=== PATIENT | female | born 1955 | race Caucasian/White ===

== ENCOUNTER 2017-09-22 06:31 | Day surgery (SDC) | payer MEDICAID ==
[2017-09-22] MEDS ORDERED: Bupivacaine 0.25%/EPINEPHrine 1:200,000 30 ML SDV ONE (06:40)
[2017-09-22] MEDS ORDERED: methylPREDNISolone Acetate 80 MG/ML SDV ONE (06:40)
[2017-09-22] MEDS ORDERED: Lactated Ringers 1,000 ML IV SCH (07:00)
[2017-09-22] MEDS ORDERED: Neostigmine Methylsulfate 1 MG/ML 5 ML Syringe ONE (07:13)
[2017-09-22] MEDS ORDERED: Glycopyrrolate 0.2 MG/ML 5 ML MDV ONE (07:13)
[2017-09-22] MEDS ORDERED: Ondansetron 4 MG/2 ML SDV ONE (07:13)
[2017-09-22] MEDS ORDERED: Succinylcholine 200 MG/10 ML MDV ONE (07:13)
[2017-09-22] MEDS ORDERED: Rocuronium 50 MG/5 ML Vial ONE (07:13)
[2017-09-22] MEDS ORDERED: Propofol 200 MG/20 ML SDV ONE (07:13)
[2017-09-22] MEDS ORDERED: fentaNYL 250 MCG/5 ML SDV ONE (07:13)
[2017-09-22] MEDS ORDERED: Dexamethasone 4 MG/ML SDV ONE (07:13)
[2017-09-22] MEDS ORDERED: ceFAZolin 2 GM in Sodium Chloride 0.9% 50 ML IV ONE (07:30)
[2017-09-22] MEDS ORDERED: Ketorolac 60 MG/2 ML SDV ONE (08:00)
[2017-09-22] MEDS ORDERED: Acetaminophen/HYDROcodone 325-5 MG Tab PO PRN (09:11)
--- NOTE | 2017-09-22 13:17 | OR ---
DATE OF PROCEDURE: 09/22/2017 PREOPERATIVE DIAGNOSES: 1. Medial and lateral meniscal tear, left knee. 2. Osteoarthritis, grade 3. 3. Grade 4 internal medial compartment, mostly from internal femoral condyle. 4. Osteoarthritic changes, grade 2 to grade 3, lateral plateau. POSTOPERATIVE DIAGNOSES: 1. Medial and lateral meniscal tear, left knee. 2. Osteoarthritis grade 3. 3. Grade 4 internal medial compartment, mostly from internal femoral condyle. 4. Osteoarthritic changes, grade 2 to grade 3, lateral plateau. INTERVENTIONS: Left knee shaving, posterior horn medial meniscus shaving, middle horn, anterior horn, lateral meniscus shaving, internal femoral condyle to a stable chondral base, also the lateral tibial plateau. MEDICATIONS: Injection of 8 mL of Marcaine and 80 mg of Depo-Medrol. COMPLICATIONS: None. ESTIMATED BLOOD LOSS: Minimal. INDICATIONS: Jenna is a 62-year-old and healthy. She had a lateral tibial plateau, had 2 cannulated screws. This was many years ago. I had removed the screws on January 25, 2014. She still had some discomfort in the lateral part of the knee, but also slightly medial part of the knee. 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 Since she had failed conservative treatment most recently, we decided to proceed with surgery. I discussed with the patient the possible risks, benefits, alternatives, and complications of surgery. The nature of the procedure was explained. All questions were answered. I had informed consent. DESCRIPTION OF PROCEDURE: The patient was brought to the OR. I did my markings of the left knee. She did receive antibiotics preop. The [facility] proceeded with general anesthesia. The patient was put on her back. A tourniquet was applied at the left proximal quadriceps. Sterile prep and dressing in the usual manner to the left knee. Time-out was taken to identify the correct surgical site to make sure all instrumentation were present in the room. The leg was elevated, tourniquet was raised to 250 mmHg. The knee was bent to 90- degree and an anterior lateral portal incision was done with the scalpel. A blunt probe was entered the articulation followed by irrigation and camera. Visualizing the medial and lateral gutters did not show any loose bodies. There was no significant inflammation. The patellofemoral joint was fairly well normal, maybe some grade 1 at the lateral facet, but the condyle itself on the medial side, front condyle and weightbearing surface mid posterior part of the condyle shows some crater fissuring at the cartilage, at least grade 3, some slight areas of grade 4 measuring about 2 x 2 cm, one spot up front, which was grade 2 to grade 3, and she had a medial horizontal tear at the junction of the middle posterior horn of the medial meniscus grade 1. Grade 2 arthritic changes of the medial plateau. The ECL was normal. The lateral compartment shows normal condyle. The plateau shows grade 2 to grade 3 fissuring just more fraying of the cartilage diffusely, and a tear at the mid anterior horn and medial tear of the lateral meniscus. The incision was done at the anterior medial portal after blunt probe was entered with the shaver, shaved the posterior horn of the medial meniscus, middle, anterior horn, and the lateral meniscus. Shaved to a stable condyle in the internal femoral condyle and lateral tibial plateau. Once the surgery was done, the knee was washed with saline and dried and all instrumentation removed. The skin was closed with nylon 3-0 simple sutures. An injection of 8 mL of Marcaine and 80 mg Depo-Medrol was done. Sterile dressing was applied. Tourniquet was released. Blood loss was minimal. There was no complication. The patient tolerated the operation well. She was sent to the recovery room in good condition. Andrew Pat MD /[id number]
== END 2017-09-22 10:10 | disposition home or self-care (01) ==
LOC: JP.SDS 06:31
PROVIDERS: ATTEND Orthopaedic Surgery
DX: M23.222 Derangement of posterior horn of medial meniscus due to old tear or injury, left knee (principal); M23.242 Derangement of anterior horn of lateral meniscus due to old tear or injury, left knee; M17.12 Unilateral primary osteoarthritis, left knee; I10 Essential (primary) hypertension; F41.8 Other specified anxiety disorders; Z79.82 Long term (current) use of aspirin; Z79.899 Other long term (current) drug therapy; Z87.891 Personal history of nicotine dependence
CPT/HCPCS: 29880; 36415; 85027; A9270; J0690; J1040; J1100; J1885; J2405; J2704; J2710; J3010; J7050; J7120; J0330

== ENCOUNTER 2024-01-23 09:30 | Emergency (ER) | payer MEDICARE ==
[2024-01-23] MEDS: Albuterol 0.083% 2.5 MG/3 ML Neb Soln NEB PRN (10:31)
[2024-01-23 10:39] LABS: BASOPHILS ABSOLUTE AUTO 0.05 K/uL (0.00-0.10); BASOPHILS PERCENT AUTO 0.9 % (0.1-1.3); EOSINOPHILS ABSOLUTE AUTO 0.31 K/uL (0.00-0.40); EOSINOPHILS PERCENT AUTO 5.3 % (0.0-5.4); HEMATOCRIT 38.3 % (34.3-46.0); HEMOGLOBIN 13.4 g/dL (11.2-15.5); IMMATURE GRAN PERCENT AUTO 0.2 % (0.0-0.7); LYMPHOCYTES ABSOLUTE AUTO 0.79 K/uL (0.8-3.3); LYMPHOCYTES PERCENT AUTO 13.5 % (11.4-47.7); MEAN CORPUSCULAR HEMOGLOBIN 32.4 pg (31.6-35.5); MEAN CORPUSCULAR VOLUME 92.7 fL (81.4-99.0); MONOCYTES ABSOLUTE AUTO 0.36 K/uL (0.20-0.90); MONOCYTES PERCENT AUTO 6.2 % (3.3-12.6); NEUTROPHILS ABSOLUTE AUTO 4.32 K/uL (1.0-7.6); NEUTROPHILS PERCENT AUTO 73.9 % (40.0-78.1); PLATELET COUNT,PLT 158 K/uL (130-375); RED BLOOD CELL COUNT 4.13 M/uL (3.77-5.24); WHITE BLOOD CELL COUNT,WBC 5.8 K/uL (3.2-11.0)
[2024-01-23 10:42] LABS: IMMATURE GRAN ABSOLUTE AUTO 0.01 K/uL (0.00-0.23)
[2024-01-23 10:59] LABS: LACTATE DEHYDROGENASE,LDH 195 U/L (82-234)
[2024-01-23 11:01] LABS: C-REACTIVE PROTEIN < 0.50 mg/dL (<0.50)
[2024-01-23 11:16] LABS: CORONAVIRUS COVID-19 NAA NEGATIVE (NEGATIVE); INFLUENZA A NAA NEGATIVE (NEGATIVE); INFLUENZA B NAA NEGATIVE (NEGATIVE); RESPIRATORY SYNCYTIAL VIR NAA NEGATIVE (NEGATIVE)
[2024-01-23] MEDS: Triamcinolone Acetonide 40 MG/ML 1 ML SDV IM ONE ×2 (11:22→12:30)
== END 2024-01-23 14:53 | disposition home or self-care (01) ==
LOC: JP.ED 09:30
DX: J44.1 Chronic obstructive pulmonary disease with (acute) exacerbation (principal); F17.200 Nicotine dependence, unspecified, uncomplicated; I10 Essential (primary) hypertension; Z88.1 Allergy status to other antibiotic agents; Z79.82 Long term (current) use of aspirin; Z79.899 Other long term (current) drug therapy; Z86.19 Personal history of other infectious and parasitic diseases; Z79.51 Long term (current) use of inhaled steroids
CPT/HCPCS: 0241U; 36415; 71046; 83615; 85025; 86140; 94640; 96372; 99285; J3301

== ENCOUNTER 2025-01-19 06:55 | Day surgery (SDC) | payer MEDICARE ==
[2025-01-19] MEDS: Lactated Ringers 1,000 ML IV SCH (07:08)
[2025-01-19] MEDS ORDERED: fentaNYL 100 MCG/2 ML SDV ONE (07:55)
[2025-01-19] MEDS ORDERED: Propofol 200 MG/20 ML SDV ONE ×2 (07:55→08:12)
== END 2025-01-19 09:46 | disposition home or self-care (01) ==
LOC: JP.SDS 06:55
PROVIDERS: ATTEND Surgery
DX: Z12.11 Encounter for screening for malignant neoplasm of colon (principal); D12.2 Benign neoplasm of ascending colon; D12.3 Benign neoplasm of transverse colon; D12.4 Benign neoplasm of descending colon; D12.5 Benign neoplasm of sigmoid colon; K57.30 Diverticulosis of large intestine without perforation or abscess without bleeding; J44.9 Chronic obstructive pulmonary disease, unspecified; I10 Essential (primary) hypertension; K21.9 Gastro-esophageal reflux disease without esophagitis; Z88.1 Allergy status to other antibiotic agents
CPT/HCPCS: 00811-QZ; 88305; J2704; J3010; J7120